=== PATIENT | male | born 1955 | race Caucasian/White ===

== ENCOUNTER 2017-01-05 10:01 | Emergency (ER) | payer OTHER ==
[~2017-01-05] VITALS: Ht 188 cm; Wt 80.3 kg
[2017-01-05 10:05] VITALS: BP_SYST 151
--- NOTE | 2017-01-05 10:10 | NUR ---
Pt placed in WR awaiting bed availability. No acute distress noted.
--- NOTE | 2017-01-05 10:52 | NUR ---
Patient to ER bed 4 to gown for evaluation. Side rails up. Report given to Mary Carmen EWING.
--- NOTE | 2017-01-05 10:55 | NUR ---
Pt states a fever since Saturday, states 102 on Saturday and it peeked at 104 on , pt went to urgent care and they ordered a chest x ray and urine, nothing was wrong and was given tylenol. Pt states took Tylenol this morning before coming to the ER. Pt has cough and congestion since last Saturday that has been getting worse and last night was unable to sleep. No other injuries/complaints per pt or noted
--- NOTE | 2017-01-05 11:12 | NUR ---
Dr. Zafar at bedside for evaluation
[2017-01-05 11:42] LABS: BASOPHILS # (AUTO) 0.1 K/uL (0.0-0.2); EOSINOPHILS % (AUTO) 0.2 % (0.0-4.0); HEMATOCRIT 40.4 % (36-54); HEMOGLOBIN 13.3 g/dL (14.0-18.0); LYMPHOCYTES # (AUTO) 0.5 K/uL (1.0-5.5); LYMPHOCYTES % (AUTO) 3.4 % (20.5-51.5); MEAN CORPUSCULAR HEMOGLOBIN 30 pg (27-31); MEAN CORPUSCULAR HGB CONC 33 % (32-36); MEAN CORPUSCULAR VOLUME 90 fL (79.0-98.0); MONOCYTES % (AUTO) 7.7 % (1.7-9.3); NEUTROPHILS # (AUTO) 11.7 K/uL (1.8-7.7); NEUTROPHILS % (AUTO) 87.7 % (40.0-70.0); PLATELET COUNT (AUTO) 172 K/uL (130-430); RED BLOOD CELL COUNT(AUTO) 4.49 MIL/uL (4.2-6.2); RED CELL DISTRIBUTION WIDTH 12.6 % (9.0-15.0); WHITE BLOOD COUNT (AUTO) 13.3 K/uL (4.8-10.8)
--- NOTE | 2017-01-05 11:45 | NUR ---
Pt is resting in bed comfortably with no noted distress or discomfort.
[2017-01-05 11:52] LABS: CREATININE 0.99 mg/dL (0.55-1.30); POTASSIUM 4.4 mmol/L (3.5-5.1)
[2017-01-05 11:54] LABS: PROTHROMBIN TIME 10.6 SECS (9.5-12.5)
[2017-01-05 11:56] LABS: ALBUMIN 3.4 g/dL (3.4-4.8); TOTAL BILIRUBIN 1.1 mg/dL (0.0-1.0); TOTAL PROTEIN, SERUM 7.5 g/dL (6.4-8.3)
[2017-01-05] MEDS ORDERED: ALBUTEROL SULFATE 0.083% 2.5 MG/3 ML VIAL.NEB INH ONE (13:00)
[2017-01-05] MEDS ORDERED: IPRATROPIUM BROM 0.5 MG/2.5 ML VIAL.NEB (ATROVENT) INH ONE (13:00)
[2017-01-05 13:40] VITALS: BP_SYST 132
--- NOTE | 2017-01-05 13:44 | NUR ---
Patient given written and verbal discharge instructions and verbalizes understanding. ER MD discussed with patient the results and treatment provided. Patient in stable condition. Rx of Levaquin, Motrin and Albuterol given. Patient educated on pain management and to follow up with PMD. Pain Scale 0/10. Opportunity for questions provided and answered.
== END 2017-01-05 13:40 | disposition home or self-care (01) ==
LOC: SED 10:01
DX: J20.9 Acute bronchitis, unspecified (principal); R03.0 Elevated blood-pressure reading, without diagnosis of hypertension; Z88.0 Allergy status to penicillin
CPT/HCPCS: 36415; 71010; 80053; 82550-TC; 83605; 83880; 84484; 85025; 85379; 85610-TC; 85730-TC; 93005; 94664; 99285